=== PATIENT | male | born 1985 | race Caucasian/White ===

== ENCOUNTER → 2017-01-01 | Day surgery (SDC) | payer BC ==
[2016-11-27 15:29] VITALS: Ht 182.9 cm; Wt 129.6 kg
[~2017-01-01] VITALS: Ht 182.9 cm; Wt 129.6 kg
[~2017-01-01] MED LIST: AMX875 PO; BENZOIN SPRAY 118 ML BTL TOP ONE; BUPIVACAINE/EPINEPHRINE 0.5% MPF 1:200,000 30 ML VIAL ONE; CEFAZOLIN 3000 MG/65 ML D5W 65 ML IV SCH; CHECK SCOPOLAMINE PATCH PLACEMENT SCH; DEXAMETHASONE SOD INJ 4 MG/ML VIAL ONE; DiphenhydrAMINE HCL 50 MG/ML VIAL IV PRN; DiphenhydrAMINE HCL 50 MG/ML VIAL ONE; FENTANYL CITRATE INJ 50 MCG/1 ML 2 ML VIAL ONE; GLYCOPYRROLATE INJ 0.2 MG/ML VIAL ONE; HYDR-5688 PO; HYDROCODONE/ACETAMOPHEN 5/325MG TAB PO PRN; KETOROLAC TROMETHAMINE 30 MG/ML VIAL IV. SCH; KETOROLAC TROMETHAMINE 30 MG/ML VIAL ONE; LACTATED RINGER'S 1000ML 1,000 ML IV PRN; LACTATED RINGER'S 1000ML 1,000 ML IV SCH; LIDOCAINE HCL 2% 2 ML VIAL (20MG/ML) ONE; LOSA50TA6 PO; METHYLENE BLUE 0.5% 10 ML VIAL ONE; METOCLOPRAMIDE HCL INJ 5 MG/ML 2 ML VIAL ONE; MIDAZOLAM HCL 1 MG/ML 2ML VIAL ONE; NEOSTIGMINE METHYLSULFATE 5 MG/5 ML SYR ONE; OMEP20TA PO; ONDANSETRON INJ 2 MG/ML 2 ML VIAL IV PRN; ONDANSETRON INJ 2 MG/ML 2 ML VIAL ONE; PROPOFOL IV EMULSION 10 MG/ML 20 ML VIAL IV ONE; ROCURONIUM BROMIDE 10 MG/ML 5 ML VIAL ONE; SCOPOLAMINE 1.5 MG TDSY TD ONE; SCOPOLAMINE 1.5 MG TDSY TD SCH; SODIUM CHLORIDE 0.9% 1000ML 1,000 ML IV SCH; SUCCINYLCHOLINE CHLORIDE 20 MG/ML 10 ML VIAL IV ONE; SULF800T23 PO
--- NOTE | 2017-01-01 07:01 | History and Physical ---
History & Physical Date Jan 01, 2017. History of Present Illness The patient is a 31 year old male with complaints of bloody drainage at one point from a pilonidal cyst. healed up on it's own and has no issues since. Additional History Hepatic Disease: No Endocrine Disorder: No Kidney Disease: No Hypertension: No Heart Disease: No Bleeding Tendencies: No Infectious Diseases: No Allergies Coded Allergies: No Known Allergies (Unverified , 11/27/16) Home Medications Scheduled Losartan Potassium (Cozaar), 50 MG PO QAM Omeprazole (Omeprazole), 40 MG PO QAM Physical Examination Skin: warm/dry Eyes: normal inspection, EOMI Neck: supple Respiratory/Chest: no respiratory distress Cardiovascular: regular rate, rhythm Abdomen / GI: normal bowel sounds, non tender Back: + pertinent finding (pt with pilonidal cyst/sinus tract. no inflammation/ drainage currently. ) Neurologic/Psych: alert, oriented x 3 Diagnosis pilonidal cyst. symptomatic Plan of Treatment discussed options/risks including bleeding/infection/dvt/wound dehiscence etc...answered all their questions. will proceed with pilonidal cystectomy.
--- NOTE | 2017-01-01 08:14 | Discharge Instructions ---
Discharge Instructions Date of Service Jan 01, 2017. Admission Reason for Admission: Pilonidal Cyst Discharge Discharge Diagnosis / Problem: Pilonidal Cyst Discharge Goals Goal(s): Decrease discomfort, Improve function Activity Recommendations Activity Limitations: as noted below Lifting Limitations: no more than 10 pounds Exercise/Sports Limitations: until after follow-up appointment May Resume Sexual Activity: after follow-up appointment Shower/Bathe: tomorrow . Instructions / Follow-Up Instructions / Follow-Up Please follow-up with nursing for wound check in 1 week. Please keep your follow-up appointment with Dr. Vasquez in 3 weeks for wound check and suture removal. Any questions or concerns please call the office at [phone]. Current Hospital Diet Patient's current hospital diet: Discharge Diet Recommended Diet: Regular Diet Procedures Procedures Performed: Pilonidal Cyst Excision Pending Studies Studies pending at discharge: no Medical Emergencies . Who to Call and When: Medical Emergencies: If at any time you feel your situation is an emergency, please call 911 immediately. . Non-Emergent Contact Non-Emergency issues call your: Primary Care Provider, Surgeon Call Non-Emergent contact if: temperature is above 101.5, your pain is not controlled, wound has increased drainage, wound has increased redness . "Provider Documentation" section prepared by Shanon De Souza. . VTE Core Measure Inpt VTE Proph given/why not?: SCD's [place] Drug Monitoring Program Search Results: no issues identified
--- NOTE | 2017-01-01 08:15 | [facility] Operative Report ---
Operative Report Operative Date Jan 01, 2017. Pre-Operative Diagnosis pilonidal cyst Post-Operative Diagnosis same Procedure(s) Performed pilonidal cystectomy Findings standard pilonidal cyst Specimens pilonidal cyst Anesthesia get Complication(s) None Disposition Recovery Room / PACU I attest to the content of the Intraoperative Record and any orders documented therein. Any exceptions are noted below.
--- NOTE | 2017-01-01 08:49 | OPERATIVE REPORT ---
DATE OF OPERATION: 01/01/2017 PREOPERATIVE DIAGNOSIS: Symptomatic pilonidal cyst. POSTOPERATIVE DIAGNOSIS: Same. PROCEDURE: Pilonidal cystectomy. SURGEON: Van Vasquez DO ENGINE TESTER: Shanon De Souza PA-C ESTIMATED BLOOD LOSS: Approximately 5 mL. COMPLICATIONS: No immediate. ANESTHESIA: General. DESCRIPTION OF PROCEDURE: After informed consent was obtained, the patient taken to the operating suite and placed in supine position. After successful intubation, the patient was rolled and placed into a prone and slightly jackknife position. We shaved the lower back area and I used benzoin and silk tape to help spread and expose the area of the cyst. We then sterilely prepped and draped the area. I injected several mL of methylene blue dye through one of the sinus tracts. I then made an elliptical incision with a 15 blade scalpel around the visible sinus tract. We carried these down through the soft tissue, ensuring that we incorporated the entire cyst and no blue dye was left behind. We excised cyst, skin, and soft tissue in 1 big piece. It was passed off to be sent to pathology. We then thoroughly irrigated the wound and controlled any bleeding points using electrocautery. We then tape the buttocks and closed the wound in multiple layers using 0 Vicryl for the deep layers, 2-0 Vicryl for the mid layers and 2-0 Prolene in an interrupted [id number] for the skin. Sterile dressing was applied. The patient was awakened and transferred to recovery in stable condition. I attest to the content of the Intraoperative Record and any orders documented therein. Any exceptio ns are noted below.
[2017-01-01] MEDS: FENTANYL CITRATE INJ 50 MCG/1 ML 2 ML VIAL IV PRN ×2 (08:53→08:58)
--- NOTE | 2017-01-01 09:18 | Anesthesia Progress Nt - [facility] ---
Anesthesia Post Op Note Date & Time Jan 01, 2017 at 09:17 Vital Signs Pain Intensity: 5 Vital Signs Past 12 Hours Date Time Temp Pulse Resp B/P Pulse Ox O2 Delivery O2 Flow Rate FiO2 01/01/17 09:10 133/86 01/01/17 09:08 159/119 01/01/17 09:08 180/107 01/01/17 09:06 92 18 163/110 95 01/01/17 09:06 92 18 01/01/17 09:04 36.8 90 12 133/86 94 Room Air 01/01/17 09:01 96 14 95 01/01/17 09:01 94 14 01/01/17 09:00 167/104 01/01/17 08:56 93 16 01/01/17 08:56 92 16 151/96 97 01/01/17 08:51 91 20 94 01/01/17 08:51 90 20 01/01/17 08:50 158/92 01/01/17 08:46 85 20 100 01/01/17 08:46 86 20 01/01/17 08:45 138/89 01/01/17 08:41 86 21 01/01/17 08:41 86 21 100 01/01/17 08:40 125/80 01/01/17 08:36 86 24 01/01/17 08:36 86 24 100 01/01/17 08:35 130/85 01/01/17 08:31 90 22 93 01/01/17 08:31 91 22 01/01/17 08:30 150/84 01/01/17 08:26 93 23 100 01/01/17 08:26 93 23 01/01/17 08:25 131/85 01/01/17 08:21 90 20 01/01/17 08:21 89 20 100 01/01/17 08:20 141/87 01/01/17 08:16 91 20 100 01/01/17 08:16 91 20 01/01/17 08:15 141/88 01/01/17 08:11 92 20 01/01/17 08:11 92 20 100 01/01/17 08:10 140/92 01/01/17 08:07 155/108 01/01/17 08:06 37.0 94 20 155/108 98 Mask 6 01/01/17 06:30 37.1 89 20 137/105 96 Room Air Notes Mental Status: alert / awake / arousable, participated in evaluation Pt Amnestic to Procedure: Yes Nausea / Vomiting: adequately controlled Pain: adequately controlled Airway Patency, RR, SpO2: stable & adequate BP & HR: stable & adequate Hydration State: stable & adequate Anesthetic Complications: no major complications apparent Pt doing well.
[2017-01-01] MEDS: HYDROCODONE/ACETAMOPHEN 5/325MG TAB PO PRN ×2 (09:53→10:08)
[2017-01-01 10:18] VITALS: BP 119/81; PULSE 94; O2SAT 95
== END | disposition home or self-care (01) ==
LOC: X.SURG 06:19
PROVIDERS: ATTEND Surgery
DX: L05.91 Pilonidal cyst without abscess (principal)

== ENCOUNTER → 2017-01-27 | Outpatient (CLI) | payer BC ==
[~2017-01-27] MED LIST changes: -AMX875 PO; -BENZOIN SPRAY 118 ML BTL TOP ONE; -BUPIVACAINE/EPINEPHRINE 0.5% MPF 1:200,000 30 ML VIAL ONE; -CEFAZOLIN 3000 MG/65 ML D5W 65 ML IV SCH; -CHECK SCOPOLAMINE PATCH PLACEMENT SCH; -DEXAMETHASONE SOD INJ 4 MG/ML VIAL ONE; -DiphenhydrAMINE HCL 50 MG/ML VIAL IV PRN; -DiphenhydrAMINE HCL 50 MG/ML VIAL ONE; -FENTANYL CITRATE INJ 50 MCG/1 ML 2 ML VIAL ONE; -GLYCOPYRROLATE INJ 0.2 MG/ML VIAL ONE; -HYDR-5688 PO; -HYDROCODONE/ACETAMOPHEN 5/325MG TAB PO PRN; -KETOROLAC TROMETHAMINE 30 MG/ML VIAL IV. SCH; -KETOROLAC TROMETHAMINE 30 MG/ML VIAL ONE; -LACTATED RINGER'S 1000ML 1,000 ML IV PRN; -LACTATED RINGER'S 1000ML 1,000 ML IV SCH; -LIDOCAINE HCL 2% 2 ML VIAL (20MG/ML) ONE; -METHYLENE BLUE 0.5% 10 ML VIAL ONE; -METOCLOPRAMIDE HCL INJ 5 MG/ML 2 ML VIAL ONE; -MIDAZOLAM HCL 1 MG/ML 2ML VIAL ONE; -NEOSTIGMINE METHYLSULFATE 5 MG/5 ML SYR ONE; -ONDANSETRON INJ 2 MG/ML 2 ML VIAL IV PRN; -ONDANSETRON INJ 2 MG/ML 2 ML VIAL ONE; -PROPOFOL IV EMULSION 10 MG/ML 20 ML VIAL IV ONE; -ROCURONIUM BROMIDE 10 MG/ML 5 ML VIAL ONE; -SCOPOLAMINE 1.5 MG TDSY TD ONE; -SCOPOLAMINE 1.5 MG TDSY TD SCH; -SODIUM CHLORIDE 0.9% 1000ML 1,000 ML IV SCH; -SUCCINYLCHOLINE CHLORIDE 20 MG/ML 10 ML VIAL IV ONE; -SULF800T23 PO
[2017-01-27 17:49] LABS: BLOOD UREA NITROGEN 13 mg/dl (7-18); BUN/CREATININE RATIO 17.2 (10-20); CALCIUM 9.1 mg/dl (8.5-10.1); CARBON DIOXIDE 28 mmol/L (21-32); CHLORIDE 107 mmol/L (98-107); CREATININE 0.78 mg/dl (0.60-1.40); GLUCOSE 91 mg/dl (70-99); POTASSIUM 4.5 mmol/L (3.5-5.1); SODIUM 141 mmol/L (136-145)
== END ==
LOC: C.LABPBG 11:19
PROVIDERS: ATTEND Family Medicine
DX: I10 Essential (primary) hypertension (principal)

== ENCOUNTER → 2017-04-13 | Outpatient (CLI) | payer BC | END | disposition home or self-care (01) | LOC: C.LABPBG 12:05 | PROVIDERS: ATTEND Physician Assistant | DX: R40.0 Somnolence (principal); Z68.39 Body mass index [BMI] 39.0-39.9, adult ==

== ENCOUNTER → 2017-08-25 | Day surgery (SDC) | payer BC ==
[~2017-08-25] VITALS: Ht 185.4 cm; Wt 136.4 kg
[~2017-08-25] MED LIST changes: +DIPH25CA5 PO; +KETAMINE HCL INJ 50 MG/ML 10 ML VIAL ONE; +LIDOCAINE HCL 2% 2 ML VIAL (20MG/ML) ONE; +MIDAZOLAM HCL 1 MG/ML 2ML VIAL ONE; +PROPOFOL IV EMULSION 10 MG/ML 20 ML VIAL IV ONE
--- NOTE | 2017-08-25 13:13 | Endo History and Physical ---
History & Physical Date of Service: Aug 25, 2017. Chief Complaint: GERD Referring Physician: Dr Danilo Landeros History of Present Illness For EGD Past Surgical History Hx Cardiac Surgery: No Hx Abdominal Surgery: No Hx Post-Op Nausea and Vomiting: No Hx Cancer Surgery: No Hx Thoracic Surgery: No Hx Orthopedic: No Hx Urinary Tract Surgery: No Social History Smoking Status: Never Smoker Hx Substance Use: No Hx Alcohol Use: Yes (OCCASIONAL) Allergies Coded Allergies: No Known Allergies (Unverified , 11/27/16) Current Medications Reported Home Medications Medications Dose Route/Sig Max Daily Dose Days Date Category Omeprazole 20 Mg Tab 40 Mg PO QAM 11/27/16 Reported Cozaar (Losartan Potassium) 50 Mg Tab 50 Mg PO QAM 11/27/16 Reported Physical Exam General Appearance: + obese Respiratory/Chest: Respiratory effort: no dyspnea Cardiovascular: Heart Auscultation: RRR Abdomen: Inspection & Palpation: soft Assessment and Plan GERD for EGD
[2017-08-25 13:25] VITALS: Ht 185.4 cm; Wt 136.4 kg
--- NOTE | 2017-08-25 14:05 | Endo History and Physical ---
History & Physical Date of Service: Aug 25, 2017. Chief Complaint: reflux Referring Physician: Dr. Hull History of Present Illness For EGD Past Surgical History Hx Cardiac Surgery: No Hx Internal Defibrillator: No Hx Pacemaker: No Hx Abdominal Surgery: No Hx of Implantable Prosthesis: No Hx Post-Op Nausea and Vomiting: No Hx Cancer Surgery: No Hx Thoracic Surgery: No Hx Orthopedic: No Hx Urinary Tract Surgery: No Social History Smoking Status: Former Smoker Hx Substance Use: No Hx Alcohol Use: Yes (social) Allergies Coded Allergies: No Known Allergies (Unverified , 08/25/17) Current Medications Reported Home Medications Medications Dose Route/Sig Max Daily Dose Days Date Category Benadryl (Diphenhydramine Hcl) 25 Mg Cap 25 Mg PO Q4H 08/25/17 Reported Omeprazole 20 Mg Tab 40 Mg PO QAM 11/27/16 Reported Cozaar (Losartan Potassium) 50 Mg Tab 50 Mg PO QAM 11/27/16 Reported Vital Signs Weight (Kilograms): 136.36 Height (Feet): 6 Height (Inches): 1 Date Time Temp Pulse Resp B/P (MAP) Pulse Ox O2 Delivery O2 Flow Rate FiO2 08/25/17 13:41 36.7 86 20 165/96 (119) 99 Room Air Physical Exam General Appearance: + obese Respiratory/Chest: Respiratory effort: no dyspnea Cardiovascular: Heart Auscultation: RRR Abdomen: Inspection & Palpation: soft Assessment and Plan GERD for EGD
--- NOTE | 2017-08-25 14:17 | Discharge Instructions ---
Endoscopy Patient Instructions Date / Procedure(s) Performed Aug 25, 2017. EGD Allergy Information Coded Allergies: No Known Allergies (Unverified , 08/25/17) Discharge Date / Findings Aug 25, 2017. Normal EGD Medication Instructions Restart Stopped Medication(s): resume meds Reported Home Medications Medications Dose Route/Sig Max Daily Dose Days Date Category Benadryl (Diphenhydramine Hcl) 25 Mg Cap 25 Mg PO Q4H 08/25/17 Reported Omeprazole 20 Mg Tab 40 Mg PO QAM 11/27/16 Reported Cozaar (Losartan Potassium) 50 Mg Tab 50 Mg PO QAM 11/27/16 Reported Provider Instructions Activity Restrictions - No exercising or heavy lifting for 24 hours. - Do not drink alcohol the day of the procedure. - Do not drive a car or operate machinery until the day after the procedure. - Do not make any important decisions or sign important papers in 24 hours after the procedure. Following Day: - Return to full activity which may include returning to work/school. Diet Start your diet with liquids and light foods (jello, soup, juice, toast). Then eat your usual diet if not nauseated. Treatment For Common After Affects For mild abdominal pain, bloating, or excessive gas: - Rest - Eat lightly - Lie on right side Follow-Up Information Follow-up with Dr. Hull as scheduled Anesthesia Information What You Should Know You have had a procedure that required some medicine to reduce anxiety and discomfort. This treatment is called moderate sedation. After receiving the treatment, you may be sleepy, but you will be able to breathe on your own. The effects of the treatment may last for several hours. Follow these instructions along with Activity/Diet recommendations noted above: * Do NOT do anything where dizziness or clumsiness would be dangerous. * Rest quietly at home today, then you can be up and about tomorrow. * Have a responsible person stay with you the rest of today. * You may have had an I.V. today. If so, you may take the dressing off later today. Recommendations Call your doctor if: * Trouble breathing * Continuous vomiting for more than 24 hours * Temperature above 101 degrees * Severe abdominal pain or bloating * Pain not relieved by pain medicine ordered * There is increased drainage or redness from any incision * A large amount of rectal bleeding greater than 2-3 tablespoons. (If you had a polyp/s removed or have hemorrhoids, a small amount of blood - from the rectum is to be expected.) * You have any unanswered questions or concerns. IN THE EVENT OF A SERIOUS EMERGENCY, GO TO THE NEAREST EMERGENCY ROOM Your discharge instructions were prepared by provider Dominic Garcia. Patient Instructions Signature Page Pepe Larios Patient (or Guardian) Signature/Date: I have read and understand the instructions given to me by my caregivers. Caregiver/RN/Doctor Signature/Date: The above-named patient and/or guardian has received patient instructions on this date. + Original Patient Signature Page (only) stays with chart. Please make copy for patient.
--- NOTE | 2017-08-25 14:20 | GI REPORT ---
Procedure Date: 08/25/2017 2:02 PM Procedure: Upper GI endoscopy Indications: Heartburn, Suspected esophageal reflux Medicines: Midazolam 2 mg IV, Propofol total dose 130 mg IV, Ketamine 20 mg IV, Lidocaine 80 mg IV Complications: No immediate complications. Estimated Blood Loss: Estimated blood loss: none. Procedure: Pre-Anesthesia Assessment: - Prior to the procedure, a History and Physical was performed, and patient medications, allergies and sensitivities were reviewed. The patient's tolerance of previous anesthesia was reviewed. - The risks and benefits of the procedure and the sedation options and risks were discussed with the patient. All questions were answered and informed consent was obtained. After obtaining informed consent, the endoscope was passed under direct vision. Throughout the procedure, the patient's blood pressure, pulse, and oxygen saturations were monitored continuously. The scope was introduced through the mouth, and advanced to the second part of duodenum. The upper GI endoscopy was accomplished without difficulty. The patient tolerated the procedure fairly well. Findings: The esophagus was normal. The stomach was normal. The examined duodenum was normal. Impression: - Normal esophagus. - Normal stomach. - Normal examined duodenum. - No specimens collected. Recommendation: - Discharge patient to home (ambulatory). - Continue present medications. - Return to primary care physician PRN. Dominic Garcia M.D. Dominic Garcia MD 08/25/2017 2:19:40 PM This report has been signed electronically. Note Initiated On: 08/25/2017 2:02 PM I attest to the content of the Intraoperative Record and orders documented therein, exceptions below
--- NOTE | 2017-08-25 14:39 | Anesthesiology Progress Note ---
Anesthesia Post Op Note Date & Time Aug 25, 2017 at 14:39 Vital Signs Pain Intensity: 0 Vital Signs Past 12 Hours Date Time Temp Pulse Resp B/P (MAP) Pulse Ox O2 Delivery O2 Flow Rate FiO2 08/25/17 14:24 97 16 130/91 (104) 97 Room Air 08/25/17 13:41 36.7 86 20 165/96 (119) 99 Room Air Notes Mental Status: alert / awake / arousable, participated in evaluation Pt Amnestic to Procedure: Yes Nausea / Vomiting: adequately controlled Pain: adequately controlled Airway Patency, RR, SpO2: stable & adequate BP & HR: stable & adequate Hydration State: stable & adequate Anesthetic Complications: no major complications apparent
--- NOTE | 2017-08-25 14:58 | Discharge Instructions ---
Endoscopy Patient Instructions Date / Procedure(s) Performed Aug 25, 2017. EGD Allergy Information Coded Allergies: No Known Allergies (Unverified , 11/27/16) Discharge Date / Findings Aug 25, 2017. Normal EGD Medication Instructions Restart Stopped Medication(s): resume meds Reported Home Medications Medications Dose Route/Sig Max Daily Dose Days Date Category Omeprazole 20 Mg Tab 40 Mg PO QAM 11/27/16 Reported Cozaar (Losartan Potassium) 50 Mg Tab 50 Mg PO QAM 11/27/16 Reported Provider Instructions Activity Restrictions - No exercising or heavy lifting for 24 hours. - Do not drink alcohol the day of the procedure. - Do not drive a car or operate machinery until the day after the procedure. - Do not make any important decisions or sign important papers in 24 hours after the procedure. Following Day: - Return to full activity which may include returning to work/school. Diet Start your diet with liquids and light foods (jello, soup, juice, toast). Then eat your usual diet if not nauseated. Treatment For Common After Affects For mild abdominal pain, bloating, or excessive gas: - Rest - Eat lightly - Lie on right side Follow-Up Information Follow-up with as scheduled Anesthesia Information What You Should Know You have had a procedure that required some medicine to reduce anxiety and discomfort. This treatment is called moderate sedation. After receiving the treatment, you may be sleepy, but you will be able to breathe on your own. The effects of the treatment may last for several hours. Follow these instructions along with Activity/Diet recommendations noted above: * Do NOT do anything where dizziness or clumsiness would be dangerous. * Rest quietly at home today, then you can be up and about tomorrow. * Have a responsible person stay with you the rest of today. * You may have had an I.V. today. If so, you may take the dressing off later today. Recommendations Call your doctor if: * Trouble breathing * Continuous vomiting for more than 24 hours * Temperature above 101 degrees * Severe abdominal pain or bloating * Pain not relieved by pain medicine ordered * There is increased drainage or redness from any incision * A large amount of rectal bleeding greater than 2-3 tablespoons. (If you had a polyp/s removed or have hemorrhoids, a small amount of blood - from the rectum is to be expected.) * You have any unanswered questions or concerns. IN THE EVENT OF A SERIOUS EMERGENCY, GO TO THE NEAREST EMERGENCY ROOM Your discharge instructions were prepared by provider Dominic Garcia. Patient Instructions Signature Page Pepe Larios Patient (or Guardian) Signature/Date: I have read and understand the instructions given to me by my caregivers. Caregiver/RN/Doctor Signature/Date: The above-named patient and/or guardian has received patient instructions on this date. + Original Patient Signature Page (only) stays with chart. Please make copy for patient.
[2017-08-25 15:10] VITALS: BP 130/87; PULSE 91; O2SAT 97
== END | disposition home or self-care (01) ==
LOC: C.GI 12:50
PROVIDERS: ATTEND Internal Medicine Gastroenterology
DX: R12 Heartburn (principal)

== ENCOUNTER → 2017-11-22 | Outpatient (CLI) | payer BC ==
[~2017-11-22] MED LIST changes: -KETAMINE HCL INJ 50 MG/ML 10 ML VIAL ONE; -LIDOCAINE HCL 2% 2 ML VIAL (20MG/ML) ONE; -MIDAZOLAM HCL 1 MG/ML 2ML VIAL ONE; -PROPOFOL IV EMULSION 10 MG/ML 20 ML VIAL IV ONE
--- NOTE | 2017-11-22 13:44 | DIAGNOSTIC IMAGING REPORT ---
R TOE(S) MIN 2 VIEWS HISTORY: 32 years-old Male UNSPECIFIED INJURY OF R FOOT/TOE acute right great toe pain status post trauma COMPARISON: None available TECHNIQUE: 3 views of the right toes with attention to the first digit FINDINGS: There is no acute fracture, dislocation or significant degenerative changes. There is mild soft tissue swelling about the imaged forefoot without opaque foreign body. IMPRESSION: Mild soft tissue swelling without fracture. The above report was generated using voice recognition software. It may contain grammatical, syntax or spelling errors. Electronically signed by: Chico Swan M.D. 11/22/2017 1:43 PM Dictated Date/Time: 11/22/2017 1:42 PM
== END | disposition home or self-care (01) ==
LOC: C.RAD1850 13:28
PROVIDERS: ATTEND Family Medicine
DX: S99.929A Unspecified injury of unspecified foot, initial encounter (principal); X58.XXXA Exposure to other specified factors, initial encounter